=== PATIENT | male | born 1945 | race Hispanic/Latino ===

== ENCOUNTER 2020-11-22 13:48 | Emergency (ER) | payer MEDICARE ==
[~2020-11-22] VITALS: Ht 162.6 cm; Wt 74.8 kg
[2020-11-22] MEDS ORDERED: TETANUS/DIPHTHERIA TOXOID [ADULT] 0.5 ML VIAL IM SCH (14:15)
[2020-11-22] MEDS ORDERED: PHARMACY COMMUNICATION MISC SCH (14:30)
[2020-11-22 14:40] LABS: BASOPHILS % (AUTO) 0.2 % (0.0-5.0); EOSINOPHILS % (AUTO) 1.1 % (0.0-8.0); HEMATOCRIT 34.9 % (42-54); LYMPHOCYTES % (AUTO) 16.5 % (21.0-51.0); MEAN CORPUSCULAR HEMOGLOBIN 30.7 pg (27.0-33.0); MEAN CORPUSCULAR HGB CONC 32.7 g/dL (32.0-36.0); MEAN CORPUSCULAR VOLUME 94.1 fL (79-99); MONOCYTES % (AUTO) 7.6 % (3.0-13.0); NEUTROPHILS % (AUTO) 74.2 % (40.0-77.0); PLATELET COUNT (AUTO) 270 K/uL (130-400); RED BLOOD CELL COUNT(AUTO) 3.71 MIL/uL (4.50-6.20); RED CELL DISTRIBUTION WIDTH 14.9 % (11.0-15.5); WHITE BLOOD COUNT (AUTO) 8.2 K/uL (4.8-10.8)
[2020-11-22 14:50] LABS: CARBON DIOXIDE 27 mmol/L (21-32); CHLORIDE 109 mmol/L (101-111); CREATININE 2.6 mg/dL (0.5-1.5); GLOMERULAR FILTR. RATE CALC 26 mL/min (>60); GLUCOSE,RANDOM 172 mg/dL (70-105); POTASSIUM 4.5 mmol/L (3.5-5.1); SODIUM SERUM 143 mmol/L (136-145); UREA NITROGEN, BLOOD 44 mg/dL (7-18)
[2020-11-22 14:53] LABS: INR 0.94 (0.85-1.15); PROTHROMBIN TIME 10.3 SEC (9.6-11.6)
[2020-11-22 14:55] LABS: PARTIAL THROMBOPLASTIN TIME 25.3 SEC (26.3-35.5)
[2020-11-22 15:02] LABS: ALANINE AMINOTRANSFERASE 16 U/L (12-78); ALBUMIN 3.2 g/dL (3.5-5.0); ASPARTATE AMINOTRANSFERASE 13 U/L (10-37); BILIRUBIN,TOTAL 0.6 mg/dL (0.2-1.0); CREATINE KINASE, TOTAL 48 U/L (21-232); MYOGLOBIN 118 ng/mL (10-92); TOTAL PROTEIN, SERUM 7.1 g/dL (6.0-8.3); TROPONIN I < 0.04 ng/mL (0.00-0.06)
[2020-11-22] MEDS ORDERED: ACET-66 PO (16:06)
[2020-11-22 16:32] VITALS: BP 207/87
[2020-11-22] MEDS ORDERED: NIFEDIPINE 10 MG CAP ONE (16:34)
[2020-11-22] MEDS: NIFEDIPINE 10 MG CAP PO SCH ×2 (16:38→17:30)
[2020-11-22] MEDS ORDERED: NIFEDIPINE 10 MG CAP PO SCH (17:30)
[2020-11-22 17:32] VITALS: BP 200/86
[2020-11-22 17:58] VITALS: BP 154/68
== END 2020-11-22 18:01 | disposition home or self-care (01) ==
LOC: EDH 13:48
DX: S40.012A Contusion of left shoulder, initial encounter (principal); N28.9 Disorder of kidney and ureter, unspecified; S09.90XA Unspecified injury of head, initial encounter; E78.5 Hyperlipidemia, unspecified; I10 Essential (primary) hypertension; Z79.899 Other long term (current) drug therapy; W07.XXXA Fall from chair, initial encounter; Y93.89 Activity, other specified; Y92.098 Other place in other non-institutional residence as the place of occurrence of the external cause; Y99.8 Other external cause status
CPT/HCPCS: 36415; 70450; 71045; 72125; 73030; 80053; 82550; 83874; 84484; 85025; 85610; 85730; 90471; 90714; 93005

== ENCOUNTER 2021-03-02 19:18 | Emergency (ER) | payer MEDICARE ==
[~2021-03-02] VITALS: Ht 175.3 cm; Wt 81.6 kg
[~2021-03-02 19:18] MED LIST: ACET-66 PO
[2021-03-02 19:19] VITALS: BP 135/59
[2021-03-02] MEDS ORDERED: NEOMY SULF/BACITRA/POLYMYXIN B 1 EACH PACKET TP ONE (20:00)
[2021-03-02 20:21] VITALS: BP 142/64
[2021-03-02 21:41] VITALS: BP 140/60
[2021-03-02 22:49] VITALS: BP 143/65
== END 2021-03-03 00:10 ==
LOC: EDH 19:18
DX: S00.83XA Contusion of other part of head, initial encounter (principal); S60.511A Abrasion of right hand, initial encounter; E11.9 Type 2 diabetes mellitus without complications; E78.00 Pure hypercholesterolemia, unspecified; I10 Essential (primary) hypertension; Z86.73 Personal history of transient ischemic attack (TIA), and cerebral infarction without residual deficits; F32.9 Major depressive disorder, single episode, unspecified; Z79.899 Other long term (current) drug therapy; W18.39XA Other fall on same level, initial encounter; Y93.89 Activity, other specified; Y92.89 Other specified places as the place of occurrence of the external cause; Y99.8 Other external cause status
CPT/HCPCS: 70450; 72125; 73130

== ENCOUNTER 2021-07-07 02:29 | Emergency (ER) | payer MEDICARE ==
[~2021-07-07] VITALS: Ht 157.5 cm; Wt 84.4 kg
[2021-07-07] MEDS ORDERED: CLONIDINE HCL 0.1 MG TABLET ONE (12:08)
[2021-07-07] MEDS ORDERED: CLONIDINE HCL 0.1 MG TABLET PO SCH (12:30)
[2021-07-07 13:34] VITALS: BP 166/71
== END 2021-07-07 13:38 | disposition home or self-care (01) ==
LOC: EDH 02:29
DX: S00.83XA Contusion of other part of head, initial encounter (principal); K21.9 Gastro-esophageal reflux disease without esophagitis; E78.00 Pure hypercholesterolemia, unspecified; Z98.890 Other specified postprocedural states; Z79.899 Other long term (current) drug therapy; W05.0XXA Fall from non-moving wheelchair, initial encounter; Y93.89 Activity, other specified; Y92.89 Other specified places as the place of occurrence of the external cause; Y99.8 Other external cause status
CPT/HCPCS: 70450